=== PATIENT | female | born 1990 | race African-American/Black ===

== ENCOUNTER 2016-09-11 21:16 | Emergency (ER) | payer OTHER ==
[2016-09-11 22:14] VITALS: BP 117/68
--- NOTE | 2016-09-17 17:28 | UC ---
Gracie Chapa Erika, scribed for Kezia Agarwal DO on 09/11/16 at 2251 . Laceration HPI - HPI Summary HPI Summary: Patient is a 26-year-old female presenting to [facility] with a CC of left finger laceration at 20:30 tonight. Patient reports she was trying to remove the pit from an avocado with a knife when the knife slipped and hit her finger. The knife was clean. Patient felt lightheaded and developed cold sweats after the incident upon seeing the wound and her own blood. Patient unsure of most recent Tdap. Patient denies PMHx. She denies FHx HTN, DM, CAD. - History Of Current Complaint Chief Complaint: UCLaceration Stated Complaint: HAND LAC Time Seen by Provider: 09/11/16 22:45 Hx Obtained From: Patient Laceration Location: Finger - right second finger Mechanism Of Injury: Sharp Trauma Onset/Duration: Sudden Onset, Lasting Hours, Still Present Severity: Moderate Pain Intensity: 0 Pain Scale Used: 0-10 Numeric - Allergies/Home Medications Allergies/Adverse Reactions: Allergies Allergy/AdvReac Type Severity Reaction Status Date / Time No Known Allergies Allergy Verified 09/11/16 22:09 Home Medications: Home Medications NK [No Home Medications Reported] 09/11/16 [History Confirmed 09/11/16] PMH/Surg Hx/FS Hx/Imm Hx Previously Healthy: Yes Endocrine History Of: Denies: Diabetes Cardiovascular History Of: Denies: Hypertension - Surgical History Surgical History: None - Family History Known Family History: Negative: Cardiac Disease, Hypertension, Diabetes - Social History Occupation: Student Lives: With Family Alcohol Use: Weekly Alcohol Amount: 1-2 drinks Substance Use Type: None Smoking Status (MU): Never Smoked Tobacco Review of Systems Constitutional: Other - cold sweats Skin: Other - laceration base of right second finger Eyes: Negative ENT: Negative Respiratory: Negative Cardiovascular: Negative Gastrointestinal: Negative Genitourinary: Negative Motor: Negative Neurovascular: Negative Musculoskeletal: Negative Neurological: Other - lightheadedness Psychological: Negative All Other Systems Reviewed And Are Negative: Yes Physical Exam Triage Information Reviewed: Yes Appearance: Well-Appearing, No Pain Distress, Well-Nourished Vital Signs: Initial Vital Signs Temp 98.8 F 09/11/16 22:09 Pulse 68 09/11/16 22:09 Resp 16 09/11/16 22:09 BP 117/68 09/11/16 22:09 Pulse Ox 100 09/11/16 22:09 Vital Signs Reviewed: Yes Eyes: Positive: Conjunctiva Clear. Negative: Discharge ENT: Positive: Hearing grossly normal. Negative: Muffled/hoarse voice Neck: Positive: Supple, Nontender Respiratory: Positive: Lungs clear, Normal breath sounds, No respiratory distress, No accessory muscle use Cardiovascular: Positive: RRR, No Murmur Musculoskeletal Exam: Normal Neurological: Positive: Alert, Muscle Tone Normal Psychological Exam: Normal Psychological: Positive: Age Appropriate Behavior Skin Exam: Other - warm, dry, normal color. 1/3 cm lac to the lateral aspect of the left index finger. No tenderness to palpation of the underlying bone Laceration Repair - Laceration Repair 1 Description: Linear Laceration Size After Repair: Length (cm) - 1/3, Depth (mm) - superficial Modified For Repair: No Cleansing Completed Via Routine Prep: Yes Irrigation With Pressure Irrigation Device: Yes Closure Material: SteriStrips - and glue Suture Of: Skin Laceration Course/Dx - Course/Dx Course Of Treatment: pt offered tdap here given uncertainty of most recent shot. pt declined and stated that it was done at [facility]. stated that she would call them tomorrow to see if she needs it at this time. - Differential Dx - Laceration/Wound Differental Diagnoses: Abrasion, Laceration Provider Diagnoses: finger lac Discharge - Discharge Plan Condition: Stable Disposition: HOME Patient Education Materials: Laceration (ED), Splint Care (ED), Skin Adhesive Care (ED), Steristrips (ED) Referrals: [facility] VERNELL Malone [Primary Care Provider] - (REMEMBER TO CALL [facility] TOMORROW TO MAKE SURE THAT YOU HAD A TETNUS SHOT WITHIN THE LAST 5 YEARS. ) The documentation as recorded by the Gracie mendez Erika accurately reflects the service I personally performed and the decisions made by me, Kezia Agarwal DO.
== END 2016-09-11 23:12 | disposition home or self-care (01) ==
LOC: UCEAST 21:16
DX: S61.211A Laceration without foreign body of left index finger without damage to nail, initial encounter (principal); W26.0XXA Contact with knife, initial encounter; Y93.G1 Activity, food preparation and clean up; Y92.9 Unspecified place or not applicable; R42 Dizziness and giddiness
CPT/HCPCS: 12001; 99201; G0463